=== PATIENT | female | born 1985 | race African-American/Black ===

== ENCOUNTER 2017-12-21 09:18 | Emergency (ER) | payer MEDICAID ==
[2017-12-21] MEDS ORDERED: Albuterol Nebulizer 2.5mg/3mL HHN STA (09:54)
--- NOTE | 2017-12-21 10:01 | ED Physician Chart ---
ED Chief Complaint/HPI - Patient Information Date Seen:: 12/21/17 Time Seen:: 09:45 Chief Complaint:: cough History of Present Illness:: Patient's had a nonproductive cough for the last 1 month. Her throat is itchy and irritated by the coughing. Patient received pertussis immunization in about 2008. Allergies:: Allergies Allergy/AdvReac Type Severity Reaction Status Date / Time No Known Allergies Allergy Verified 12/21/17 09:36 Vitals:: Vital Signs - 8 hr 12/21/17 12/21/17 09:24 09:40 Temp 97.3 F 97.3 F HR 94 94 RR 16 16 BP 125/75 125/75 O2 Sat % 97 97 Historian:: Patient Review:: Nurse's Note Reviewed ED Review of Systems - Review of Systems General/Constitutional: No fever, No chills Skin: No skin lesions Head: No headache Eyes: No loss of vision ENT: No earache Neck: No neck pain Cardio Vascular: No chest pain Pulmonary: Cough GI: No nausea, No vomiting, No diarrhea G/U: No dysuria, No frequency, No nacturia Musculoskeletal: No bone or joint pain, No muscle pain Endocrine: No polyuria, No polydipsia Psychiatric: No prior psych history Allergic/Immuno: No urticaria, No angioedema Neurological: No syncope, No focal symptoms ED Past Medical History - Past Medical History Past Medical History: No significant medical hx Family History: HTN, Other (son apparently has environmental allergies specifically to [place] on trees) Social History: Non Smoker, No Alcohol Surgical History: None Family Medical History - Family Member Mother History Unknown: Yes Age: 45 Ethnicity: Non- Living Status: Hx Family Cancer: Yes (Cervical Cancer) ED Physical Exam - Physical Examination General/Constitutional: Awake Head: Atraumatic Eyes: Lids, conjuctiva normal, PERRL, EOMI Skin: Nl inspection, No rash, No skin lesions, No ecchymosis, Well hydrated, No lymphadenopathy ENMT: External ears, nose nl, Nasal exam nl, Lips, teeth, gums nl Neck: Nontender, Full ROM w/o pain, No JVD, No nuchal rigidity, No bruit, No mass, No stridor Respiratory: Nl effort/Exclusion, Clear to Auscultation Other Respiratory comments:: Breath sounds decreased expiratory more than his respiratory; no wheezing Cardio Vascular: RRR, No murmur, gallop, rubs, NL S1 S2 GI: No tenderness/rebounding/guarding, No organomegaly, No hernia, Normal BS's, Nondistended, No mass/bruits, No McBurney tenderness : No CVA tenderness Extremities: No tenderness or effusion, Full ROM, normal strength in all extremities, No edema, Normal digits & nails Neuro/Psych: Alert/oriented, DTR's symmetric, Normal sensory exam, Normal motor strength, Judgement/insight normal, Mood normal, Normal gait, No focal deficits Misc: Normal back, No paraspinal tenderness ED Assessment - Assessment General Assessment: Patient got slight improvement with the breathing treatment. Auscultation of the chest after the breathing treatment was unchanged. Breath sounds were still decreased. I believe there is some component of reactive airway disease in the patient's cough. Patient to be prescribed both a Z-Lei in case she has had pertussis and also albuterol metered-dose inhaler. I explained to the patient how to correctly use an albuterol metered-dose inhaler. ED Septic Shock - . Is Septic Shock (SBP<90, OR Lactate>4 mmol\L) present?: No - <6hrs of presentation: Vital Signs: Vital Signs - 8 hr 12/21/17 12/21/17 09:24 09:40 Temp 97.3 F 97.3 F HR 94 94 RR 16 16 BP 125/75 125/75 O2 Sat % 97 97 ED Reassessment (Disposition) - Reassessment Reassessment Condition:: Improved - Diagnosis Diagnosis:: Bronchitis - Aftercare/Follow up Instructions Aftercare/Follow-Up Instructions:: Refer to Discharge Instructions - Patient Disposition Discharge/Transfer:: Home Condition at Disposition:: Stable, Improved
[2017-12-21] MEDS ORDERED: Albuterol Nebulizer 2.5mg/3mL HHN ONE (10:06)
== END 2017-12-21 10:29 | disposition home or self-care (01) ==
LOC: ER 09:18
DX: J40 Bronchitis, not specified as acute or chronic (principal)
CPT/HCPCS: 94640; J7613; Z7502